=== PATIENT | male | born 1950 | race Caucasian/White ===

== ENCOUNTER 2023-07-18 08:49 | Outpatient (AMB) | payer MEDICARE, SELFPAY ==
--- NOTE | 2023-07-18 09:05 | HO.SPINEOV ---
Intake Intake Visit Reasons: low back pain Intake Note: Mr. Carlson is here today c/o low back pain. 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 I previously operated on his lumbar spine for lumbar radiculopathy. He states that he is woken up multiple both times a night due to severe pain of his left hip. The only thing that helps is getting up and then stretching and flexing forward. Walking standing sitting can be done without limitations. Physical Exam: Pleasant male. Outward rotation of the hip is painful . MALENA test is positive. Rodríguez test towards the right side produces pain in the left hip. Straight leg raise is negative. Radiological Studies: MRI the lumbar spine show stable lumbar degenerative disc disease. Impression/Plan: Clinically this patient is suffering from left hip pathology, most likely a bursitis of the greater trochanter. I had him evaluated by our pain specialist Dr. Pratt, and he agreed to a my findings. He will perform an left hip injection for which she has been scheduled. Thank you for allowing me to participate in your patients care. total time spent was 50 minutes in counseling ,coordination of plan, personal review of imaging, subsequent plan Manny Colbert MD, PhD Sp[facility] Trained Neurosurgeon Director, [facility] Orders: Referrals Pain Management Referral M70.62 - Trochanteric bursitis, left hip Coding Level of Care Code New Pt Level 4 (33189) Diagnoses Trochanteric bursitis of left hip M70.62
== END 2023-07-18 09:51 | disposition home or self-care (01) ==
PROVIDERS: PCP Internal Medicine; Visit Provider Neurological Surgery
DX: M70.62 Trochanteric bursitis, left hip (principal)
CPT/HCPCS: 99204

== ENCOUNTER → 2023-07-18 08:49 | Outpatient (BNVA) | payer MEDICARE, SELFPAY | PROVIDERS: PCP Internal Medicine; Visit Provider Neurological Surgery | DX: M70.62 Trochanteric bursitis, left hip (principal) | CPT/HCPCS: 99202 ==

== ENCOUNTER 2023-07-30 08:51 | Outpatient (AMB) | payer MEDICARE, SELFPAY ==
--- NOTE | 2023-07-30 09:19 | A.OFFVIS_ITS ---
Intake Vital Signs 07/30/23 09:20 Height 5 ft 10 in Weight 211 lb BMI 30.3 BP 145/84 H Blood Pressure Location Lt brachial Position Sitting Respiration 12 Pulse 62 Pulse Source Pulse Oximeter Pulse Oximetry (%) 95 Oxygen Delivery Method Room Air Intake Visit Reasons: Dx Left GTB ([place]) Allergies ENVIRONMENTAL Allergy (Unknown, Uncoded 07/30/23 09:22) NASAL STUFFINESS Medication List - Last Reconciled 07/30/23 by Katya Chambers LPN No Known Home Meds HPI Dx Left GTB ([place]) HPI Details 72-year-old male who presents today to t he office for a diagnostic left GTB. He has a three-month history of left lateral hip pain that started gradually and has been constant. Although he feels that it is starting to get slightly better, It is described as an aching sensation. The pain is rated at 5-7/10 in intensity. It is worse at night and interferes with his sleep. He is not taking any medications for the symptoms. He woke up multiple times a night due to severe pain in his left hip. Stretching and flexing forward alleviates the pain. He states that he can walk, stand, and sit without limitations. 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 His past surgical history is notable for two prior surgeries at L5-S1, including discectomy, followed by a scar revision, and then an L4-5 discectomy on December 09. He has done traction therapy, but the last two visits have worsened his pain. Review of Systems Const All systems reviewed & are unremarkable except as noted in HPI and below Physical Exam Vital Signs: Last Vital Signs Pulse 62 07/30/23 09:20 Resp 12 07/30/23 09:20 BP 145/84 H 07/30/23 09:20 Pulse Ox 95 07/30/23 09:20 Oxygen Delivery Method Room Air 07/30/23 09:20 BMI result Body Mass Index 30.3 General: Appears afebrile. Alert and oriented. Mood and affect appropriate. Follows and participates in conversation appropriately. Respiratory effort is unlabored. Able to transition from sit to stand unassisted. Ambulates with bilaterally normal heel strike and toe off. Office Procedures Joint Injection/Drain Joint Injection/Drain Details: Left greater trochanteric Bursa injection with local anesthetic, ultrasound guided Primary Site: other (Left greater trochanteric bursa) Prep: site was prepped using sterile technique Injected: other (ropivacaine 0.25% on left side) Approach Used: other (Lateral approach under ultrasound guidance) Procedure: The patient tolerated the procedure well Coding Details: An ultrasound image of the injection was taken and stored in the permanent record. - Glenohumeral/Tronchanteric Bursa/Intraarticular (left, ultrasound guided ) Procedure code (CPT) selection complete Results Reviewed Results Reviewed: No imaging is available for review. Assessment & Plan Assessment & Plan (1) Trochanteric bursitis of left hip: Code(s): M70.62 - Trochanteric bursitis, left hip (2) Tendinopathy of gluteus medius: Code(s): M67.959 - Unspecified disorder of synovium and tendon, unspecified thigh Plan Patient is status post left greater trochanteric bursa injection with local anesthetic under ultrasound guided. Patient tolerated procedure well and was discharged home in stable condition with discharge instructions. All questions were answered. Depending on response to the injection, we will consider either corticosteroid or dextrose injection to the gluteal medius tendon insertion site at the greater trochanter. Scribed for Dr. Vargas by Clayton La, spanish medical interpreter, on 07/30/2023. I, Dr. Vargas, have personally reviewed and agree with the information entered by the scribe. Coding Level of Care Code New Pt Level 4 (85083) Diagnoses Trochanteric bursitis of left hip M70.62 Tendinopathy of gluteus medius M67.959 CPT Codes Coding - Joint 7: - Glenohumeral/Tronchanteric Bursa/Intraarticular ([id number])
[2023-07-30 09:20] VITALS: BP 145/84; PULSE 62; RESP 12; O2SAT 95; BMI 30.3
== END 2023-07-30 10:04 | disposition home or self-care (01) ==
PROVIDERS: PCP Internal Medicine; Visit Provider Internal Medicine
DX: M70.62 Trochanteric bursitis, left hip (principal); M67.959 Unspecified disorder of synovium and tendon, unspecified thigh
CPT/HCPCS: 20611; 99204

== ENCOUNTER → 2023-07-30 08:51 | Outpatient (BNVA) | payer MEDICARE, SELFPAY | PROVIDERS: PCP Internal Medicine; Visit Provider Internal Medicine | DX: M70.62 Trochanteric bursitis, left hip (principal); M67.959 Unspecified disorder of synovium and tendon, unspecified thigh | CPT/HCPCS: 20611; 99202; J2795 ==

== ENCOUNTER 2023-08-17 08:10 | Outpatient (AMB) | payer MEDICARE, SELFPAY ==
--- NOTE | 2023-08-17 08:12 | A.OFFVIS_ITS ---
Intake Vital Signs 08/17/23 08:14 Height 5 ft 10 in Weight 211 lb BMI 30.3 BP 157/77 H Blood Pressure Location Rt brachial Position Sitting Respiration 12 Pulse 58 Pulse Source Pulse Oximeter Pulse Oximetry (%) 97 Oxygen Delivery Method Room Air Intake Visit Reasons: Left theraputic GTB inj Allergies ENVIRONMENTAL Allergy (Unknown, Uncoded 08/17/23 08:15) NASAL STUFFINESS Medication List - Last Reconciled 08/17/23 by Katya Chambers LPN No Known Home Meds HPI Left theraputic GTB inj HPI Details 72-year-old male who presents today to t he office for a left therapeutic GTB injection. The patient reports >80% relief following the procedure for 1-2 days. He has noticed some improvement but still continues to have pain after it returned. Denies any recent cough, cold, infection, fever or other significant changes in medical history since last office visit. Past procedure: 07/30/23: Left greater trochanteric Burs a injection with local anesthetic, ultrasound guided: Positive diagnostic relief. Review of Systems Const All systems reviewed & are unremarkable except as noted in HPI and below Physical Exam Vital Signs: Last Vital Signs Pulse 58 08/17/23 08:14 Resp 12 08/17/23 08:14 BP 157/77 H 08/17/23 08:14 Pulse Ox 97 08/17/23 08:14 Oxygen Delivery Method Room Air 08/17/23 08:14 BMI result Body Mass Index 30.3 General: Appears afebrile. Alert and oriented. Mood and affect appropriate. Follows and participates in conversation appropriately. Respiratory effort is unlabored. Able to transition from sit to stand unassisted. Ambulates with bilaterally normal heel strike and toe off. Office Procedures Joint Injection/Drain Joint Injection/Drain Details: Left greater trochanteric Bursa steroid injection, ultrasound guided Primary Site: other (Left greater trochanteric bursa) Prep: site was prepped using sterile technique Injected: 40 mg of Approach Used: other (Lateral approach under ultrasound guidance) Procedure: The patient tolerated the procedure well Coding Details: An ultrasound image of the injection was taken and stored in the permanent record. - Glenohumeral/Tronchanteric Bursa/Intraarticular (left, ultrasound guided) Procedure code (CPT) selection complete Results Reviewed Results Reviewed: No imaging is available for review. Assessment & Plan Assessment & Plan (1) Trochanteric bursitis of left hip: Code(s): M70.62 - Trochanteric bursitis, left hip Plan Patient is status post left greater trochanteric bursa steroid injection, ultrasound guided. Patient tolerated procedure well and was discharged home in stable condition with discharge instructions. All questions were answered. We also discussed non-steroidal options, including PRP injection, as a possible treatment option in the future. Follow-up as needed. Scribed for Dr. Vargas by Clayton La medical reimbursement specialist, on 08/17/2023. I, Dr. Vargas, have personally reviewed and agree with the information entered by the scribe. Coding Level of Care Code Procedure Only Diagnoses Trochanteric bursitis of left hip M70.62 CPT Codes Coding - Joint 7: 25582 - Glenohumeral/Tronchanteric Bursa/Intraarticular ([id number])
[2023-08-17 08:14] VITALS: BP 157/77; PULSE 58; RESP 12; O2SAT 97; BMI 30.3
== END 2023-08-17 09:07 | disposition home or self-care (01) ==
PROVIDERS: PCP Internal Medicine; Visit Provider Internal Medicine
DX: M70.62 Trochanteric bursitis, left hip (principal)
CPT/HCPCS: 20611

== ENCOUNTER → 2023-08-17 08:10 | Outpatient (BNVA) | payer MEDICARE, SELFPAY | PROVIDERS: PCP Internal Medicine; Visit Provider Internal Medicine | DX: M70.62 Trochanteric bursitis, left hip (principal) | CPT/HCPCS: 20611 ==

== ENCOUNTER 2024-04-11 08:40 | Outpatient (AMB) | payer MEDICARE, SELFPAY ==
--- NOTE | 2024-04-11 08:47 | MHC.OFFVIS ---
Vital Signs 04/11/24 08:48 Height 5 ft 10 in Weight 201 lb BMI 28.8 BP 155/79 H Blood Pressure Location Rt brachial Position Sitting Respiration 15 Pulse 56 Pulse Source Pulse Oximeter Pulse Oximetry (%) 97 Oxygen Delivery Method Room Air Intake Visit Reasons: Left theraputic GTB inj Allergies ENVIRONMENTAL Allergy (Unknown, Uncoded 04/11/24 08:49) NASAL STUFFINESS Medication List - Last Reconciled 04/11/24 by Katya Chambers LPN No Known Home Meds HPI HPI Left theraputic GTB inj: Details: 73-year-old male who presents to the office today for a left therapeutic GTB injection. While in the office today, the patient reports 75% relief following the procedure. He also reports improvement of his pain for 7 months after getting the injection. He is here today for a repeat left therapeutic GTB injection. Denies any recent cough, cold, infection, fever or other significant changes in medical history since last office visit. Past procedure: 08/17/23: Left greater trochanteric Bursa injection with local anesthetic, ultrasound guided: Positive therapeutic relief for 7 months. 07/30/23: Left greater trochanteric Bursa injection with local anesthetic, ultrasound guided: Positive diagnostic relief. Review of Systems Const All systems reviewed & are unremarkable except as noted in HPI and below Physical Exam Vital Signs: Last Vital Signs Pulse 56 04/11/24 08:48 Resp 15 04/11/24 08:48 BP 155/79 H 04/11/24 08:48 Pulse Ox 97 04/11/24 08:48 Oxygen Delivery Method Room Air 04/11/24 08:48 BMI result Body Mass Index 28.8 General: Appears afebrile. Alert and oriented. Mood and affect appropriate. Follows and participates in conversation appropriately. Respiratory effort is unlabored. Able to transition from sit to stand unassisted. Ambulates with bilaterally normal heel strike and toe off. Office Procedures AMB Joint Injection/Aspiration Joint Injection/Aspiration Details: Left greater trochanteric bursa steroid injection, ultrasound guided Primary Site: other (Left greater trochanteric bursa) Prep: site was prepped using sterile technique Injected: 40 mg of, Kenalog, with 0.25 mL of and other (ropivacaine) Approach Used: other Procedure: The patient tolerated the procedure well Coding 05791 - Glenohumeral/Tronchanteric Bursa/Intraarticular Procedure code (CPT) selection complete Results Reviewed Results Reviewed: No imaging is available for review. Assessment & Plan Assessment & Plan (1) Tendinopathy of gluteus medius: Code(s): M67.959 - Unspecified disorder of synovium and tendon, unspecified thigh Category: Medical (2) Trochanteric bursitis of left hip: Code(s): M70.62 - Trochanteric bursitis, left hip Category: Medical Plan Patient is status post left greater trochanteric bursa steroid injection, ultrasound guided. Patient tolerated procedure well and was discharged home in stable condition with discharge instructions. All questions were answered. We will repeat the injection as needed. Scribed for Dr. Vargas by Ky Sanders medical dosimetrist, on 04/11/2024. I, Dr. Vargas, have personally reviewed and agree with the information entered by the scribe. Coding Level of Care Code Procedure Only Diagnoses Tendinopathy of gluteus medius M67.959 Trochanteric bursitis of left hip M70.62 CPT Codes Coding - Joint 7: 19084 - Glenohumeral/Tronchanteric Bursa/Intraarticular ([id number])
[2024-04-11 08:48] VITALS: BP 155/79; PULSE 56; RESP 15; O2SAT 97; BMI 28.8
== END 2024-04-11 10:00 | disposition home or self-care (01) ==
PROVIDERS: PCP Internal Medicine; Visit Provider Internal Medicine
DX: M70.62 Trochanteric bursitis, left hip (principal)
CPT/HCPCS: 20610

== ENCOUNTER → 2024-04-11 08:40 | Outpatient (BNVA) | payer MEDICARE, SELFPAY | PROVIDERS: PCP Internal Medicine; Visit Provider Internal Medicine | DX: M70.62 Trochanteric bursitis, left hip (principal); M67.959 Unspecified disorder of synovium and tendon, unspecified thigh | CPT/HCPCS: 20610; J2795; J3301 ==